=== PATIENT | female | born 1985 | race Two or more races ===

== ENCOUNTER 2020-05-09 06:12 | Inpatient (IN) ==
[2020-05-09] MEDS ORDERED: OXYTOCIN 30 UNITS/500 ML BAG IV PRN ×2 (08:16→17:25)
[2020-05-09 08:37] LABS: Hematocrit (blood only) 36.3 % (37-47); Hemoglobin 12.4 g/dL (12.0-16.0); Mean Corpuscular Volume 93.8 fL (80-100); Mean Platelet Volume 11.4 fL (7.4-10.4); Platelet Count 145 K/uL (130-400); RDW Standard Deviation 44.5 fL (36.4-46.3); Red Blood Count 3.87 M/uL (4.2-5.4); White Blood Count 7.85 K/uL (4.8-10.8)
[2020-05-09 08:44] LABS: Mean Corpuscular Hgb Conc 34.2 g/dL (32-36)
--- NOTE | 2020-05-09 08:48 | Obstetrical Progress Note ---
Date of Service May 09, 2020 Assessment & Plan Admission and Anticipated Discharge Date Admission Date: May 09, 2020 Physical Exam Physical Exam: Admit Note 34 F P1001 at 41 weeks admitted for IOL for post-dates . GBS is negative. FHT Cat 1. Patient was originally seen in [place], [place] for care and transferred to us late in the , Cervix 3/50/- 3/vertex/intact/anterior. EFW 7.5 lbs. Will start with Cytotec for induction of labor and cervical ripening. Results & Data ([facility]) Vital Signs (Past 12 Hours) Vital Signs Temp Pulse Resp BP 05/09/20 08:22 72 131/86 05/09/20 06:35 18 05/09/20 06:23 36.8 C 18 05/09/20 06:22 74 131/87
[2020-05-09] MEDS: miSOPROStoL 25 MCG TAB PV SCH ×2 (09:33→14:56)
--- NOTE | 2020-05-09 09:37 | Obstetrical Progress Note ---
Date of Service May 09, 2020 Assessment & Plan Admission and Anticipated Discharge Date Admission Date: May 09, 2020 Physical Exam Physical Exam: Cytotec 25 mcg placed vaginally. Constitutional: WD/WN, vitals as above Results & Data ([facility]) Vital Signs (Past 12 Hours) Vital Signs Temp Pulse Resp BP 05/09/20 08:22 36.7 C 72 20 131/86 05/09/20 06:35 18 05/09/20 06:23 36.8 C 18 05/09/20 06:22 74 131/87
[2020-05-09] MEDS: LACTATED RINGER'S 1,000 ML IV PRN ×2 (12:41→14:56)
[2020-05-09] MEDS ORDERED: BUPIVACAINE 0.25% 30 ML VIAL ONE (12:47)
[2020-05-09] MEDS ORDERED: ePHEDrine sulfate 50 MG/ML AMP ONE (12:47)
[2020-05-09] MEDS ORDERED: fentaNYL citrate 100 MCG/2 ML VIAL ONE (12:47)
[2020-05-09] MEDS ORDERED: fentaNYL 2MCG/ML ROPIV 1.25MG/ML 100 ML BAG EPI ONE (12:48)
[2020-05-09] MEDS ORDERED: ONDANSETRON INJ 2 MG/ML 2 ML VIAL IV PRN (13:11)
[2020-05-09] MEDS ORDERED: DiphenhydrAMINE HCL 50 MG/ML VIAL IV PRN (13:11)
[2020-05-09] MEDS ORDERED: NALOXONE HCL 0.4 MG/1 ML VIAL/CARP IV PRN (13:11)
[2020-05-09] MEDS ORDERED: fentaNYL 2MCG/ML ROPIV 1.25MG/ML 100 ML BAG EPI PRN (13:11)
[2020-05-09] MEDS ORDERED: NALOXONE HCL 1 MG in SODIUM CHLORIDE 0.9% 1000ML 1,000 ML IV PRN (13:11)
[2020-05-09] MEDS ORDERED: ePHEDrine sulfate 50 MG/ML AMP IV PRN (13:11)
--- NOTE | 2020-05-09 13:16 | Anesthesiology Consultation ---
Date of Service May 09, 2020 Assessment & Plan Chart Review Chart Review: Acceptable Risk for Surgery and Patient NOT seen in Pre Admission Testing Consults Requested none ASA ASA2 Proposed Anesthesia Anesthesia Type: MAC Spinal Risk / Benefits Reviewed With: PT / POA / Parent / Guardian, Accepts Plan and Informed Consent Obtained History Height/Weight Height: 5 ft 4 in Weight: 75.296 kg Allergies Allergy/AdvReac Type Severity Reaction Status Date / Time No Known Allergies Allergy Verified 05/09/20 10:11 Medications Home Medications Medication Instructions Recorded Confirmed Last Taken vit no.[id number] 1 tab PO DAILY 05/09/20 05/09/20 05/08/20 [ Vitamin] Active Medications Generic Name Dose Route Start Last Admin Trade Name Freq PRN Reason Stop Dose Admin Lactated Ringer's 1,000 mls @ 125 mls/hr 05/09/20 08:16 05/09/20 12:41 Lr IV 05/11/20 08:15 999 mls/hr .Q8H PRN Administration L&D Protocol Protocol Misoprostol 25 mcg 05/09/20 09:30 05/09/20 09:33 Cytotec PV 06/08/20 09:29 25 mcg Q4H ROCIO Administration NPO Date Last Intake of Fluids: 05/09/20 Time Last Intake of Fluids: 12:00 Date Last Intake of Solids: 05/09/20 Time Last Intake of Solids: 10:00 Past Medical History Medical History Missed Varicella vaccine Exercise / Class Metabolic Activity II 4-5 Yardwork/Stairs/Walk up hill Past Surgical History Surgical History No pertinent past surgical history Past Anesthesia History No Hx of Anesthesia Complications and No Family Hx of Anesthesia Complications History of PONV No Hx of PONV and No Hx of Motion Sickness Social History Smoking Status: Never smoker Hx Alcohol Use: No Hx Substance Use: No Review of Systems no chest pain or sob Physical Exam Vital Signs Last Vital Signs Temp 36.7 C 05/09/20 08:22 Pulse 75 05/09/20 13:15 Resp 20 05/09/20 08:22 BP 131/86 05/09/20 08:22 Pulse Ox 100 05/09/20 13:15 SpO2 100 ENMT Mouth: no TMJ abnormality Thyromental Distance: > or= 3.5 Finger Breadths Mallampati Class: II Neck normal visual inspection Respiratory normal respiratory effort Auscultation: lungs clear to auscultation bilaterally Cardiovascular Rate/Rhythm: regular rate and regular rhythm Musculoskeletal Spine: normal cervical ROM Neurologic moves all extremities Psychiatric Orientation: alert and oriented x 3 Testing Laboratory Results 05/09/20 08:30
--- NOTE | 2020-05-09 14:56 | Obstetrical Progress Note ---
Date of Service May 09, 2020 Assessment & Plan Admission and Anticipated Discharge Date Admission Date: May 09, 2020 Physical Exam Genitourinary: OB Exam Abdomen: + vertex and + regular contractions Manual OB Exam: + cervical dilation 9 cm, + cervical effacement 100%, + station -1 and + amniotic fluid clear OB Exam Monitor Tracing: + external FHT monitor used, + external uterine monitor used, + category I and + normal FHT variability SROM clear fluid Results & Data ([facility]) Vital Signs (Past 12 Hours) Vital Signs Temp Pulse Resp BP Pulse Ox 05/09/20 14:50 78 99 05/09/20 14:45 68 98 05/09/20 14:41 65 116/67 05/09/20 14:40 65 99 05/09/20 14:35 69 97 05/09/20 14:30 70 96 05/09/20 14:26 63 111/64 05/09/20 14:25 64 96 05/09/20 14:20 73 97 05/09/20 14:15 65 99 05/09/20 14:11 66 113/73 05/09/20 14:10 72 97 05/09/20 14:05 67 95 05/09/20 14:00 66 97 05/09/20 13:57 71 94 05/09/20 13:55 70 117/74 98 05/09/20 13:50 72 117/69 96 05/09/20 13:45 67 99 05/09/20 13:43 70 121/75 05/09/20 13:41 67 125/77 05/09/20 13:40 69 99 05/09/20 13:39 71 124/78 05/09/20 13:37 69 124/76 05/09/20 13:35 82 132/81 100 05/09/20 13:33 73 126/80 05/09/20 13:31 70 124/83 05/09/20 13:30 74 100 05/09/20 13:29 71 130/80 05/09/20 13:27 67 133/85 05/09/20 13:25 80 100 05/09/20 13:20 75 100 05/09/20 13:15 75 100 05/09/20 08:22 36.7 C 72 20 131/86 05/09/20 06:35 18 05/09/20 06:23 36.8 C 18 07/02/20 06:22 74 131/87
--- NOTE | 2020-05-09 17:11 | Delivery Summary ---
Vaginal Delivery Summary Date of Service May 09, 2020 Vaginal Delivery Summary Delivery Note live female over intact perineum with delayed cord clamping Apgars 8/9 weight pending. Cord blood obtained followed by spontaneous delivery of intact placenta. No tears. EBL 300 ml. Final sponge and instrument count are correct. Mom and baby stable.
[2020-05-09] MEDS ORDERED: BENZOCAINE 20% AER SPR 82.5 GM CAN EXT PRN (17:25)
[2020-05-09] MEDS ORDERED: bisacodyL 10 MG SUPP PR PRN (17:25)
[2020-05-09] MEDS ORDERED: DIPHTHERIA/TETANUS/PERTUSSIS 0.5 ML SYR/VIAL IM ONE (17:25)
[2020-05-09] MEDS ORDERED: SUPERCREAM 0.870% 15 GM JAR EXT PRN (17:25)
[2020-05-09] MEDS ORDERED: HYDROCORTISONE ACETATE 25 MG SUPP PR PRN (17:25)
[2020-05-09] MEDS ORDERED: ACETAMINOPHEN 325 MG TAB PO PRN (17:25)
--- NOTE | 2020-05-09 18:45 | Anesthesia Procedure Note ---
Date of Service May 09, 2020 Anesthesia Post Epidural Note Vital Signs Vital Signs: Temp Pulse Resp BP Pulse Ox 36.7 C 68 20 133/82 93 05/09/20 08:22 05/09/20 18:31 05/09/20 08:22 05/09/20 18:31 05/09/20 16:53 Notes Mental Status: alert / awake / arousable and participated in evaluation Nausea / Vomiting: adequately controlled Pain: adequately controlled Airway Patency, RR, SpO2: stable & adequate BP & HR: stable & adequate Hydration State: stable & adequate Neuraxial Anesthesia: was administered and sensory block is resolving Anesthetic Complications: no major complications apparent and Pt Satisfied with anesthetic care Epidural: Removed without complications and With tip intact
[2020-05-09] MEDS: DOCUSATE SODIUM 100 MG CAP PO SCH (20:33)
[2020-05-10] MEDS: IBUPROFEN 600 MG TAB PO PRN ×3 (02:00→14:35)
[2020-05-10 05:55] LABS: Hematocrit (blood only) 34.5 % (37-47); Hemoglobin 11.1 g/dL (12.0-16.0); Mean Corpuscular Hgb Conc 32.2 g/dL (32-36); Mean Corpuscular Volume 96.4 fL (80-100); Mean Platelet Volume 11.9 fL (7.4-10.4); Platelet Count 137 K/uL (130-400); RDW Standard Deviation 45.2 fL (36.4-46.3); Red Blood Count 3.58 M/uL (4.2-5.4); White Blood Count 9.62 K/uL (4.8-10.8)
[2020-05-10] MEDS ORDERED: PRENATAL VITAMIN 1 TAB PO SCH ×2 (08:00→09:00)
[2020-05-10] MEDS: DOCUSATE SODIUM 100 MG CAP PO SCH (08:13)
--- NOTE | 2020-05-10 08:16 | Obstetrical Progress Note ---
Date of Service May 10, 2020 Assessment & Plan Admission and Anticipated Discharge Date Admission Date: May 09, 2020 Subjective Patient is seen and examined. She feels well, no complaints. Wants to be discharged today. Ambulating without dizziness Voiding without difficulty Tolerating regular diet with out N&V Bleeding is minimal No fever/ chills/ CP/ SOB/ N&V/ Leg pain Breast feeding without problems Lab Results 05/09/20 05/10/20 Range/Units 08:30 05:34 WBC 7.85 9.62 (4.8-10.8) K/uL RBC 3.87 L 3.58 L (4.2-5.4) M/uL Hgb 12.4 11.1 L (12.0-16.0) g/dL Hct 36.3 L 34.5 L (37-47) % MCV 93.8 96.4 (80-100) fL MCH 32.0 31.0 (25-34) pg MCHC 34.2 32.2 (32-36) g/dL RDW Std Deviation 44.5 45.2 (36.4-46.3) fL RDW Coeff of Radha 13.0 13.0 (11.5-14.5) % Plt Count 145 137 (130-400) K/uL MPV 11.4 H 11.9 H (7.4-10.4) fL Vital Signs Temp Pulse Resp BP Pulse Ox 05/10/20 04:30 36.5 C 66 14 126/84 98 05/09/20 23:30 36.7 C 77 16 138/85 98 PE: General: Alert, orientedx3, NAD Abd: soft, NT, fundus firm, below Umbilicus Perineum intact, Lochia rubra minimal Ext; NT, no edema AP: 34 yo s/p , ppd# 1 VSS Afebrile doing well Continue routine care All questions were answered D/C home after 24 hours Discussed when to call Results & Data ([facility]) Vital Signs (Past 12 Hours) Vital Signs Temp Pulse Resp BP Pulse Ox 05/10/20 04:30 36.5 C 66 14 126/84 98 05/09/20 23:30 36.7 C 77 16 138/85 98
[2020-05-10] MEDS ORDERED: bisacodyL 5 MG TABEC PO SCH (20:00)
== END 2020-05-10 18:20 | disposition home or self-care (01) | DRG 807 ==
LOC: 4S1 06:12 → 4S2 21:05

== ENCOUNTER 2020-05-12 12:55 | Inpatient (IN) ==
--- NOTE | 2020-05-12 13:30 | Emergency Department Note ---
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 Patient reports she has been having chills. She reports abdominal pain as well as back pain. She reports a T-max of 102 at home. She reports no cough or loss of sme ll. No dysuria. She reports minimal breast pain, feeling her breasts are engorged but her milk is recently come in. She states her pain is made worse by walking. Home Medications Home Medications Medication Instructions Recorded Confirmed Type Vitamin 1 tab PO DAILY 05/09/20 05/12/20 History acetaminophen [Tylenol Extra 1,000 mg PO Q6H PRN 05/12/20 05/12/20 History Strength] ibuprofen 200 mg PO Q6H PRN 05/12/20 05/12/20 History Allergies Allergy/AdvReac Type Severity Reaction Status Date / Time No Known Allergies Allergy Verified 05/12/20 14:23 Past Med/Surg History Medical History Missed Varicella vaccine Surgical History No pertinent past surgical history Social History Preferred Language: Wolof Communication Ability: Effective Didactic Program In Dietetics Director Required: No Beliefs That Will Affect Care: None marital status: marital status details: Joshua Madrigal (39) [phone] Current Living Situation: Spouse and Family Current Living Situation Comment: and daughter current occupational status: employed 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, [employer] Feels Safe at Home: Yes Smoking Status: Former smoker Second Hand Exposure: No ; Hx Alcohol Use: No Hx Substance Use: No Review of Systems A total of 10 systems reviewed and were otherwise negative Physical Exam Vital Signs Vital Signs - 24 hr 05/12/20 13:03 05/12/20 13:57 05/12/20 14:00 Temperature 38.0 C H Temperature Source Oral Pulse Rate 126 H 86 89 Pulse Rate [Apical] Pulse Rate from SpO2 Sensor Respiratory Rate 20 18 20 Respiratory Effort / Characteristics Non-Labored Respiratory Depth Normal Blood Pressure 129/87 120/76 118/73 Blood Pressure [Left Arm] Blood Pressure Mean 101 82 80 Blood Pressure Mean [Left Arm] Pulse Oximetry 98 98 97 Oxygen Delivery Method Room Air Room Air Room Air Sepsis Recent Fever Within 48 Hours No Sepsis Action Taken by Nursing No Action Required 05/12/20 14:01 05/12/20 14:09 05/12/20 14:10 Temperature Temperature Source Pulse Rate 90 85 Pulse Rate [Apical] Pulse Rate from SpO2 Sensor Respiratory Rate 18 19 Respiratory Effort / Characteristics Respiratory Depth Blood Pressure Blood Pressure [Left Arm] Blood Pressure Mean Blood Pressure Mean [Left Arm] Pulse Oximetry 96 Oxygen Delivery Method Room Air Sepsis Recent Fever Within 48 Hours Sepsis Action Taken by Nursing 05/12/20 14:15 05/12/20 14:20 05/12/20 14:30 Temperature Temperature Source Pulse Rate 85 91 H Pulse Rate [Apical] Pulse Rate from SpO2 Sensor 80 Respiratory Rate 21 18 20 Respiratory Effort / Characteristics Respiratory Depth Blood Pressure 117/75 118/72 Blood Pressure [Left Arm] Blood Pressure Mean 83 80 Blood Pressure Mean [Left Arm] Pulse Oximetry 98 98 Oxygen Delivery Method Room Air Room Air Sepsis Recent Fever Within 48 Hours Sepsis Action Taken by Nursing 05/12/20 14:31 05/12/20 14:40 05/12/20 14:45 Temperature Temperature Source Pulse Rate Pulse Rate [Apical] Pulse Rate from SpO2 Sensor 79 79 89 Respiratory Rate Respiratory Effort / Characteristics Respiratory Depth Blood Pressure 123/77 Blood Pressure [Left Arm] Blood Pressure Mean 82 Blood Pressure Mean [Left Arm] Pulse Oximetry 98 98 99 Oxygen Delivery Method Room Air Sepsis Recent Fever Within 48 Hours Sepsis Action Taken by Nursing 05/12/20 15:14 Temperature 37 C Temperature Source Oral Pulse Rate Pulse Rate [Apical] 79 Pulse Rate from SpO2 Sensor Respiratory Rate 18 Respiratory Effort / Characteristics Non-Labored Respiratory Depth Normal Blood Pressure Blood Pressure [Left Arm] 120/75 Blood Pressure Mean Blood Pressure Mean [Left Arm] 90 Pulse Oximetry 97 Oxygen Delivery Method Room Air Sepsis Recent Fever Within 48 Hours Sepsis Action Taken by Nursing Physical Exam GENERAL: She is oriented to person, place, and time. She appears well-developed and well-nourished. She does not appear distressed. HENT: Exam performed. -Head: Normocephalic and atraumatic. -Right Ear: External ear normal. No mastoid tenderness. -Left Ear: External ear normal. No mastoid tenderness. -Mouth/Throat: The oropharynx is clear and moist. No trismus in the jaw. No dental abscesses or uvula swelling. No oropharyngeal exudate or tonsillar abscesses. EYES: Conjunctivae and EOM are normal. Pupils are equal, round, and reactive to light. Right eye exhibits no discharge. Left eye exhibits no discharge. No scl eral icterus. NECK: Normal range of motion. Neck supple. No JVD present. No spinous process tenderness present. No carotid bruit present. No rigidity. No tracheal deviation and normal range of motion present. No Brudzinski's sign and no Kernig's sign noted. CV: Normal rate, regular rhythm, normal heart sounds and intact distal pulses. There is no peripheral edema. Palpable radial pulses bue. PULM/CHEST: Effort normal and breath sounds normal. No respiratory distress. No stridor. She has no wheezes. She has no rales. -Chest Wall: Conducted with nursing csr at bedside. She exhibits no tenderness. No breast erythema, no evidence of mastitis. ABD: The abdomen is soft. Gravid. Abdomen is tender to palpation in the suprapubic area. MUSC/SKEL: Normal range of motion. There is no peripheral edema, tenderness or deformity. LYMPH: No cervical adenopathy. NEURO: She is alert and oriented to person, place, and time. She has normal strength. No cranial nerve deficit or sensory deficit. Coordination and gait normal. GCS eye subscore is 4. GCS verbal subscore is 5. GCS motor subscore is 6. Cerebellar tests wnl. SKIN: Skin is warm and dry. She is not diaphoretic. PSYCH: She has a normal mood and affect. Behavior is normal. Judgment and thought content normal. Course Course 1315: The patient was evaluated in room C10. A complete history and physical exam was performed. Sepsis orders were initiated. Cardiac monitoring: An order was placed for continuous cardiac monitoring. The monitor shows a rate of 120 with sinus rhythm 1325: Discussed with Dr. Brenda Fernandez PROFILE GRINDER TECHNICIAN and I discussed the patient's physical exam and vitals as well as history with him. He states the patient could be suffering from endometritis. I asked him if ultrasound or CT would be better for imaging and he stated the CT would be best. He stated to call him with results of the imaging and then he would guide further management. 1545: Vital signs improved status post IV fluids and Tylenol. Patient's labs show leukocytosis of 13.6. Potassium 3.3. Lactic acid within normal limits. CT shows possible retained products of conception, recommending pelvic ultrasound. I did discuss the CT findings, repeat vital signs, and white blood cell count with Dr. Gutierrez who states to obtain a pelvic ultrasound and he will admit the patient. Dr. Gutierrez states once the patient is on the L&D floor he will evaluate her and start antibiotics. Administered Medications Ioversol (Optiray 320 100ml) 91 ml IV ONCE PRN PRN Reason: Interaction Checking Stop: 05/16/20 15:05 Last Admin: 05/12/20 15:06 Dose: 91 ml Documented by: [id number] Discontinued Medications Acetaminophen (Ofirmev) 1,000 mg in 100 mls @ 400 mls/hr IV NOW STA Stop: 05/12/20 13:54 Last Infusion: 05/12/20 14:37 Dose: 0 mls/hr Documented by: [id number] Admin: 05/12/20 14:20 Dose: 400 mls/hr Documented by: [id number] Sodium Chloride (Nss 1000ml) 1,000 mls @ 999 mls/hr IV .Q1H1M ONE Stop: 05/12/20 14:40 Last Infusion: 05/12/20 15:20 Dose: 0 mls/hr Documented by: [id number] Admin: 05/12/20 14:20 Dose: 999 mls/hr Documented by: [id number] Medical Decision Making Laboratory Data Result diagrams: 05/12/20 13:59 05/12/20 13:59 Lab Results 05/12/20 05/12/20 05/12/20 Range/Units 13:21 13:59 13:59 WBC 13.64 H (4.8-10.8) K/uL RBC 3.51 L (4.2-5.4) M/uL Hgb 11.4 L (12.0-16.0) g/dL Hct 33.3 L (37-47) % MCV 94.9 (80-100) fL MCH 32.5 (25-34) pg MCHC 34.2 (32-36) g/dL RDW Std Deviation 43.8 (36.4-46.3) fL RDW Coeff of Radha 12.9 (11.5-14.5) % Plt Count 129 L (130-400) K/uL MPV 11.2 H (7.4-10.4) fL Immature Gran % (Auto) 0.5 % Neut % (Auto) 91.8 % Lymph % (Auto) 2.9 % Parke % (Auto) 4.5 % Eos % (Auto) 0.2 % Baso % (Auto) 0.1 % Neut # (Auto) 12.52 H (1.4-6.5) K/uL Lymph # (Auto) 0.39 L (1.2-3.4) K/uL Parke # (Auto) 0.62 H (0.11-0.59) K/uL Eos # (Auto) 0.03 (0-0.5) K/uL Baso # (Auto) 0.01 (0-0.2) K/uL Immature Gran # (Auto) 0.07 H (0.00-0.02) K/uL PT 10.3 (9.0-12.0) Seconds INR 1.0 (0.9-1.1) APTT 27.7 (21.0-31.0) Seconds PTT Ratio 1.0 Sodium (136-145) mmol/L Potassium (3.5-5.1) mmol/L Chloride (98-107) mmol/L Carbon Dioxide (21-32) mmol/L Anion Gap (3-11) BUN (7-18) mg/dl Creatinine (0.6-1.2) mg/dl Est Cr Clr Drug Dosing ml/min Est GFR ( Amer) Est GFR (Non-Af Amer) BUN/Creatinine Ratio (10-20) Glucose (70-99) mg/dl Lactate (0.4-2.0) mmol/L Calcium (8.5-10.1) mg/dl Magnesium (1.8-2.4) mg/dl Total Bilirubin (0.2-1) mg/dl AST (15-37) U/L ALT (12-78) U/L Alkaline Phosphatase (45-117) U/L Total Protein (6.4-8.2) gm/dl Albumin (3.4-5.0) gm/dl Globulin (2.5-4.0) gm/dl Albumin/Globulin Ratio (0.9-2) Procalcitonin (0-0.5) ng/ml Urine Color [place] Urine Appearance Cloudy A (Clear) Urine pH >= 9.0 H (4.5-7.5) Ur Specific [place] 1.018 (1.000-1.030) Urine Protein 1+ H (Negative) Urine Glucose (UA) Negative (Negative) Urine Ketones Negative (Negative) Urine Blood 3+ H (Negative) Urine Nitrite Negative (Negative) Urine Bilirubin Negative (Negative) Urine Urobilinogen Negative (Negative) Ur Leukocyte Esterase 2+ H (Negative) Urine WBC (Auto) >30 H (0-5) /hpf Urine RBC (Auto) 10-30 H (0-4) /hpf U Hyaline Cast (Auto) 1-5 (0-5) /lpf U Epithel Cells (Auto) 20-30 H (0-5) /lpf Urine Bacteria (Auto) 1+ H (Negative) Urine Mucus Present A (None Prsent) Urine Yeast Not Reportable 05/12/20 05/12/20 05/12/20 Range/Units 13:59 13:59 13:59 WBC (4.8-10.8) K/uL RBC (4.2-5.4) M/uL Hgb (12.0-16.0) g/dL Hct (37-47) % MCV (80-100) fL MCH (25-34) pg MCHC (32-36) g/dL RDW Std Deviation (36.4-46.3) fL RDW Coeff of Radha (11.5-14.5) % Plt Count (130-400) K/uL MPV (7.4-10.4) fL Immature Gran % (Auto) % Neut % (Auto) % Lymph % (Auto) % Parke % (Auto) % Eos % (Auto) % Baso % (Auto) % Neut # (Auto) (1.4-6.5) K/uL Lymph # (Auto) (1.2-3.4) K/uL Parke # (Auto) (0.11-0.59) K/uL Eos # (Auto) (0-0.5) K/uL Baso # (Auto) (0-0.2) K/uL Immature Gran # (Auto) (0.00-0.02) K/uL PT (9.0-12.0) Seconds INR (0.9-1.1) APTT (21.0-31.0) Seconds PTT Ratio Sodium 136 (136-145) mmol/L Potassium 3.3 L (3.5-5.1) mmol/L Chloride 104 (98-107) mmol/L Carbon Dioxide 21 (21-32) mmol/L Anion Gap 11.0 (3-11) BUN 6 L (7-18) mg/dl Creatinine 0.49 L (0.6-1.2) mg/dl Est Cr Clr Drug Dosing 152.8 ml/min Est GFR ( Amer) 145.3 Est GFR (Non-Af Amer) 125.3 BUN/Creatinine Ratio 11.3 (10-20) Glucose 89 (70-99) mg/dl Lactate 0.6 (0.4-2.0) mmol/L Calcium 8.1 L (8.5-10.1) mg/dl Magnesium 1.8 (1.8-2.4) mg/dl Total Bilirubin 0.7 (0.2-1) mg/dl AST 37 (15-37) U/L ALT 36 (12-78) U/L Alkaline Phosphatase 73 (45-117) U/L Total Protein 5.9 L (6.4-8.2) gm/dl Albumin 2.4 L (3.4-5.0) gm/dl Globulin 3.5 (2.5-4.0) gm/dl Albumin/Globulin Ratio 0.7 L (0.9-2) Procalcitonin 0.14 (0-0.5) ng/ml Urine Color Urine Appearance (Clear) Urine pH (4.5-7.5) Ur Specific [place] (1.000-1.030) Urine Protein (Negative) Urine Glucose (UA) (Negative) Urine Ketones (Negative) Urine Blood (Negative) Urine Nitrite (Negative) Urine Bilirubin (Negative) Urine Urobilinogen (Negative) Ur Leukocyte Esterase (Negative) Urine WBC (Auto) (0-5) /hpf Urine RBC (Auto) (0-4) /hpf U Hyaline Cast (Auto) (0-5) /lpf U Epithel Cells (Auto) (0-5) /lpf Urine Bacteria (Auto) (Negative) Urine Mucus (None Prsent) Urine Yeast Imaging Data Radiologist's Impression: ABDOMEN AND PELVIS CT WITH IV CONTRAST CT DOSE: 350.33 mGy.cm HISTORY: Acute generalized abdominal pain and fever with history of recent vaginal delivery. abdominal pain fever 3 days s/p vag delivery TECHNIQUE: Multiaxial CT images of the abdomen and pelvis were performed following the IV administration of 91 cc of Optiray 320, A dose lowering technique was utilized adhering to the principles of ALARA. COMPARISON STUDY: Chest radiograph of same day FINDINGS: Clear lung bases. There is no pneumatosis or pneumoperitoneum. Imaged inferior cardiac chambers are unremarkable. Spleen measures up to 15.3 cm in AP dimension. Pancreas, adrenal glands and gallbladder are unremarkable. There are least 6 hepatic lesions noted largest of which measures 6.0 cm and the inferior right hepatic lobe. All of these lesions appear to demonstrate varying degrees of peripheral discontiguous nodular enhancement. Patency of the hepatic and portal veins. Mild bilateral pelvocaliectasis, likely physiologic secondary to recent gravid state. Moderate urinary bladder distention. Enlarged post gravid appearance of the uterus with endometrial thickening and heterogeneity. There is probable fluid/debris within the lower uterine segment and endocervical canal. Trace free pelvic fluid. No adnexal mass lesion. Aorta and IVC are unremarkable. No bowel obstruction or bowel wall thickening. Moderate fecal retention. Unremarkable appendix. Tiny fat filled periumbilical hernia. Imaged breast parenchyma and soft tissues appear unremarkable. Bones appear intact. IMPRESSION: 1. Enlarged post-gravid appearance of the uterus with endometrial heterogeneity. Possible debris/fluid within the endocervical canal and lower uterine segment. These findings could be correlated with a pelvic ultrasound to exclude retained products of conception. 2. No bowel obstruction or bowel wall thickening. Normal appendix. 3. Moderate fecal retention. 4. There are at least six hepatic lesions measuring up to 6.0 cm in the inferior right hepatic lobe. These lesions demonstrate imaging characteristics suggestive of probable hemangiomata. Confirmation could be made with a follow-up nonemergent CT or MRI liver protocol exam. ACT 112: Negative or not required by law. The above report was generated using voice recognition software. It may contain grammatical, syntax or spelling errors. Electronically signed by: Adelso Santana M.D. 05/12/2020 3:32 PM Dictated: 05/12/20 1524 Transcribed: 05/12/20 1524 XR chest 1V portable HISTORY: 34 years-old Female SEPSIS acute sepsis COMPARISON: None TECHNIQUE: Portable AP view of the chest FINDINGS: Cardiomediastinal and hilar silhouettes are within normal limits. No pneumothorax, pleural effusion, airspace consolidation or overt pulmonary edema. Bones of the chest appear grossly intact. IMPRESSION: No acute process. ACT 112: Negative or not required by law. The above report was generated using voice recognition software. It may contain grammatical, syntax or spelling errors. Electronically signed by: Adelso Santana M.D. 05/12/2020 2:15 PM Dictated: 05/12/20 1414 Transcribed: 05/12/20 1414 [facility] Narrative 1315: The patient was evaluated in room C10. A complete history and physical exam was performed. Sepsis orders were initiated. Cardiac monitoring: An order was placed for continuous cardiac monitoring. The monitor shows a rate of 120 with sinus rhythm 1325: Discussed with Dr. Brenda Fernandez PROFILE GRINDER TECHNICIAN and I discussed the patient's physical exam and vitals as well as history with him. He states the patient could be suffering from endometritis. I asked him if ultrasound or CT would be better for imaging and he stated the CT would be best. He stated to call him with results of the imaging and then he would guide further management. 1545: Vital signs improved status post IV fluids and Tylenol. Patient's labs show leukocytosis of 13.6. Potassium 3.3. Lactic acid within normal limits. CT shows possible retained products of conception, recommending pelvic ultrasound. I did discuss the CT findings, repeat vital signs, and white blood cell count with Dr. Gutierrez who states to obtain a pelvic ultrasound and he will admit the patient. Dr. Gutierrez states once the patient is on the L&D floor he will evaluate her and start antibiotics. Impression & Plan Acute endometritis, Fever, Abdominal pain Discharge Plan Visit Data Chief Complaint: Illness Stated Complaint: ABDOMINAL PAIN,FEVER CHILLS,GAVE 3 DAYS AGO ED Provider: Sj Storm Discharge Problem: Acute endometritis, Fever, Abdominal pain Patient Disposition: Admitted As Inpatient Forms Stand Alone Forms: [facility] Prescriptions Prescriptions: No Action Vitamin 27 mg iron- 800 mcg Tablet 1 tab PO DAILY RF: 0 acetaminophen [Tylenol Extra Strength] 500 mg Tablet 1,000 mg PO Q6H PRN (Reason: fever/pain) RF: 0 ibuprofen 200 mg Tablet 200 mg PO Q6H PRN (Reason: fever/pain) RF: 0 Referrals Referrals: PCP,NO [Primary Care Provider] - Discharge Problem: Fever Qualifiers: Fever type: unspecified Qualified Code(s): R50.9 - Fever, unspecified Abdominal pain Qualifiers: Abdominal location: unspecified location Qualified Code(s): R10.9 - Unspecified abdominal pain
[2020-05-12 13:36] LABS: Appearance Urine Cloudy (Clear); Bilirubin Urine Negative (Negative); Blood Urine 3+ (Negative); Color Urine Orange; Epithelial Cell Urine Auto 20-30 /lpf (0-5); Glucose Urine UA Negative (Negative); Ketones Urine Negative (Negative); Leukocyte Esterase Urine 2+ (Negative); Nitrite Urine Negative (Negative); Specific Gravity Urine 1.018 (1.000-1.030); Urobilinogen Urine Negative (Negative); WBC Urine Automated >30 /hpf (0-5); pH Urine >= 9.0 (4.5-7.5)
[2020-05-12] MEDS ORDERED: SODIUM CHLORIDE 0.9% 1000ML 1,000 ML IV ONE (13:40)
[2020-05-12] MEDS ORDERED: ACETAMINOPHEN 1,000 MG/100 ML VIAL IV STA (13:40)
[2020-05-12 13:54] LABS: Protein Urine 1+ (Negative); Sulfosalicylic Acid Urine Positive (Negative)
[2020-05-12 13:56] LABS: Mucus Urine Present (None Prsent)
[2020-05-12 13:57] LABS: Bacteria Urine Automated 1+ (Negative)
[2020-05-12 14:10] LABS: Basophils # (auto) 0.01 K/uL (0-0.2); Basophils % (auto) 0.1 %; Eosinophils # (auto) 0.03 K/uL (0-0.5); Eosinophils % (auto) 0.2 %; Hematocrit (blood only) 33.3 % (37-47); Hemoglobin 11.4 g/dL (12.0-16.0); Immature Granulocytes # (auto) 0.07 K/uL (0.00-0.02); Immature Granulocytes % (auto) 0.5 %; Lymphocytes # (auto) 0.39 K/uL (1.2-3.4); Lymphocytes % (auto) 2.9 %; Mean Corpuscular Hemoglobin 32.5 pg (25-34); Mean Corpuscular Hgb Conc 34.2 g/dL (32-36); Mean Corpuscular Volume 94.9 fL (80-100); Mean Platelet Volume 11.2 fL (7.4-10.4); Monocytes # (auto) 0.62 K/uL (0.11-0.59); Monocytes % (auto) 4.5 %; Neutrophils # (auto) 12.52 K/uL (1.4-6.5); Neutrophils % (auto) 91.8 %; Platelet Count 129 K/uL (130-400); RDW Coefficient of Variation 12.9 % (11.5-14.5); RDW Standard Deviation 43.8 fL (36.4-46.3); Red Blood Count 3.51 M/uL (4.2-5.4); White Blood Count 13.64 K/uL (4.8-10.8)
--- NOTE | 2020-05-12 14:16 | XRay Report ---
XR chest 1V portable HISTORY: 34 years-old Female SEPSIS acute sepsis COMPARISON: None TECHNIQUE: Portable AP view of the chest FINDINGS: Cardiomediastinal and hilar silhouettes are within normal limits. No pneumothorax, pleural effusion, airspace consolidation or overt pulmonary edema. Bones of the chest appear grossly intact. IMPRESSION: No acute process. ACT 112: Negative or not required by law. The above report was generated using voice recognition software. It may contain grammatical, syntax o r spelling errors. Electronically signed by: Adelso Santana M.D. 05/12/2020 2:15 PM
[2020-05-12 14:20] LABS: Partial Thromboplastin Time 27.7 Seconds (21.0-31.0); Prothrombin Time 10.3 Seconds (9.0-12.0)
[2020-05-12 14:31] LABS: Albumin Level 2.4 gm/dl (3.4-5.0); BUN Creatinine Ratio 11.3 (10-20); Calcium 8.1 mg/dl (8.5-10.1); Creatinine Clr Calc Pharmacy 152.8 ml/min; Est GFR (African American) 145.3; Est GFR (Non-African American) 125.3; Magnesium 1.8 mg/dl (1.8-2.4); Potassium 3.3 mmol/L (3.5-5.1)
[2020-05-12 14:34] LABS: Albumin Globulin Ratio 0.7 (0.9-2); Bilirubin,Total 0.7 mg/dl (0.2-1); Globulin 3.5 gm/dl (2.5-4.0); Total Protein 5.9 gm/dl (6.4-8.2)
[2020-05-12] MEDS ORDERED: IOVERSOL 100ml IV PRN (15:06)
--- NOTE | 2020-05-12 15:34 | CT Scan Report ---
ABDOMEN AND PELVIS CT WITH IV CONTRAST CT DOSE: 350.33 mGy.cm HISTORY: Acute generalized abdominal pain and fever with history of recent vaginal delivery. abdomin al pain fever 3 days s/p vag delivery TECHNIQUE: Multiaxial CT images of the abdomen and pelvis were performed following the IV administrat ion of 91 cc of Optiray 320, A dose lowering technique was utilized adhering to the principles of AL [place]. COMPARISON STUDY: Chest radiograph of same day FINDINGS: Clear lung bases. There is no pneumatosis or pneumoperitoneum. Imaged inferior cardiac chambers are u nremarkable. Spleen measures up to 15.3 cm in AP dimension. Pancreas, adrenal glands and gallbladder are unremarkable. There are least 6 hepatic lesions noted largest of which measures 6.0 cm and the in ferior right hepatic lobe. All of these lesions appear to demonstrate varying degrees of peripheral d iscontiguous nodular enhancement. Patency of the hepatic and portal veins. Mild bilateral pelvocaliec tasis, likely physiologic secondary to recent gravid state. Moderate urinary bladder distention. Enla rged post gravid appearance of the uterus with endometrial thickening and heterogeneity. There is pro bable fluid/debris within the lower uterine segment and endocervical canal. Trace free pelvic fluid. No adnexal mass lesion. Aorta and IVC are unremarkable. No bowel obstruction or bowel wall thickening. Moderate fecal retention. Unremarkable appendix. Tiny fat filled periumbilical hernia. Imaged breast parenchyma and soft tissues appear unremarkable. Bones appear intact. IMPRESSION: 1. Enlarged post-gravid appearance of the uterus with endometrial heterogeneity. Possible debris/flui d within the endocervical canal and lower uterine segment. These findings could be correlated with a pelvic ultrasound to exclude retained products of conception. 2. No bowel obstruction or bowel wall thickening. Normal appendix. 3. Moderate fecal retention. 4. There are at least six hepatic lesions measuring up to 6.0 cm in the inferior right hepatic lobe. These lesions demonstrate imaging characteristics suggestive of probable hemangiomata. Confirmation c ould be made with a follow-up nonemergent CT or MRI liver protocol exam. ACT 112: Negative or not required by law. The above report was generated using voice recognition software. It may contain grammatical, syntax o r spelling errors. Electronically signed by: Adelso Santana M.D. 05/12/2020 3:32 PM
--- NOTE | 2020-05-12 16:43 | Ultrasound Report ---
US pelvic complete HISTORY: 34 years-old Female fever abd pain ro retained prodocut conception acute fever with general ized abdominal and pelvic pain status post recent vaginal delivery COMPARISON: CT abdomen and pelvis 05/12/2020 TECHNIQUE: Multiple real-time sonographic images of the pelvic structures were obtained transabdomina lly assessing grayscale appearance, color and spectral flow FINDINGS: Anteflexed enlarged and heterogeneous uterus measures 18.6 x 8.5 x 12.7 cm. No definite myometrial ma ss lesion identified. Endometrium is heterogeneous measuring up to 1.5 cm in thickness. Fluid/debris is noted within the lower uterine segment and cervix. No color flow identified these distributions. Right ovary measures 3.0 x 1.9 x 2.5 cm demonstrates normal arterial inflow and venous outflow. The l eft ovary measures 3.2 x 2.0 x 2.3 cm and also demonstrates normal arterial inflow and venous outflow . No significant free pelvic fluid. IMPRESSION: 1. Enlarged, heterogeneous postgravid appearance of the uterus with heterogeneous endometrium. No def inite evidence of retained products of conception. This finding could be correlated with serial quant itative beta hCG analysis. 2. Small amount of fluid/debris of the lower uterine segment and endocervical canal suggests blood pr oducts. 3. Normal appearance of the bilateral ovaries. ACT 112: Negative or not required by law. The above report was generated using voice recognition software. It may contain grammatical, syntax o r spelling errors. Electronically signed by: Adelso Santana M.D. 05/12/2020 4:42 PM
[2020-05-12] MEDS ORDERED: D5W AND NSS 1,000 ML IV SCH (17:00)
[2020-05-12] MEDS ORDERED: GENTAMICIN CONSULT ACTIVE PRN (19:23)
[2020-05-12] MEDS ORDERED: ACETAMINOPHEN 500 MG TAB PO PRN (19:23)
--- NOTE | 2020-05-12 19:51 | Pharmacy Report ---
Pharmacy Abx Dose Short Note - Date of Service May 12, 2020 - Assessment & Plan Microbiology: * Urine (clean catch)--pending * BC x 2--pending Laboratory Tests 05/12/20 05/12/20 13:59 13:59 WBC 13.64 H Creatinine 0.49 L Est Cr Clr Drug Dosing 152.8 Assessment 34 year old F post 3 days ago with fever/abdominal pain, ordered Clinda/Gent Day # 1 of antimicrobial therapy. Plan Gent: * Ordered [facility] Protocol: Gent 5mg/kg (Adj BW) 300mg IV q24h for est CrCL>60mL/min. * Ordered Random Gent 7/6 AM labs to better assess drug clearance and appropriate dosing interval. * Scr daily x 3 days. Pharmacy will continue to follow and will adjust dose/frequency as necessary. Thank you.
[2020-05-12] MEDS: LACTATED RINGER'S 1,000 ML IV SCH (19:58)
[2020-05-12] MEDS: CLINDAMYCIN 900 MG in DEXTROSE 5% 50 ML IV SCH (20:07)
[2020-05-12] MEDS ORDERED: GENTAMICIN SULFATE 300 MG in DEXTROSE 5% 100 ML IV SCH (20:30)
--- NOTE | 2020-05-12 22:15 | History and Physical Report ---
DATE OF ADMISSION: 05/12/2020 HISTORY OF PRESENT ILLNESS: The patient is a 34-year-old status post vaginal delivery on 05/09/2020. Delivery was unremarkable. The patient was discharged home . Today, she presented to the ER with positive chills and fever. She denies chest pain, no shortness of breath, nausea or vomiting. She also had complaints of lower abdominal pain radiating to the back. In the ER, she was seen and evaluated. Evaluation included labs and CT scan and ultrasound. CT scan and ultrasound was unremarkable from the pelvic and abdominal standpoint. Temperature in the ER was 100.4. Otherwise, the patient is unremarkable. PAST MEDICAL HISTORY: None. PAST SURGICAL HISTORY: None. SOCIAL HISTORY: The patient is and lives with spouse and children. FAMILY HISTORY: Noncontributory. ALLERGIES: No known drug allergies. PHYSICAL EXAMINATION: GENERAL: Well-developed, well-nourished white female in no acute distress. VITAL SIGNS: In the ER showed a temperature of 100.4, blood pressure of 129/87, respirations 18, pulse is 90. HEART: S1, S2, regular rhythm and rate. LUNGS: Clear to auscultation bilaterally. ABDOMEN: Nontender, nondistended, mild tenderness on palpation of the uterus. PELVIC: Unremarkable. There is minimal lochia. EXTREMITIES: No cyanosis, clubbing or edema. ASSESSMENT AND PLAN: Status post endomyometritis after vaginal delivery 3 days ago. The patient is admitted, will start the patient on antibiotics therapy. [facility]
[2020-05-12] MEDS: IBUPROFEN 600 MG TAB PO PRN (23:17)
[2020-05-13] MEDS: CLINDAMYCIN 900 MG in DEXTROSE 5% 50 ML IV SCH ×3 (04:14→18:07)
[2020-05-13] MEDS: LACTATED RINGER'S 1,000 ML IV SCH (05:11)
[2020-05-13 06:58] LABS: Creatinine Clr Calc Pharmacy 162.8 ml/min; Est GFR (African American) 148.3
--- NOTE | 2020-05-13 08:58 | Obstetrical Progress Note ---
Date of Service May 13, 2020 Assessment & Plan Admission and Anticipated Discharge Date Admission Date: May 12, 2020 Subjective Patient is seen and examined. She feels well, no complaints. Admitted yesterday with fever and abdominal pain for endometritis No more fever/ chills No CP/ SOB/ cough/ N&V/diarrhea nor Leg pain No known contact with COVID -19 patient Desires testing Ambulating without dizziness Voiding without difficulty Tolerating regular diet with out N&V Bleeding is minimal Breast feeding without problems Vital Signs Temp Pulse Pulse Pulse Pulse Resp BP 05/13/20 08:00 36.4 C L 62 20 05/13/20 04:10 37.0 C 75 16 05/12/20 23:20 37.2 C 84 17 05/12/20 19:04 37.2 C 80 18 05/12/20 18:02 87 18 05/12/20 17:30 74 18 05/12/20 16:44 73 18 05/12/20 15:14 37 C 79 18 05/12/20 14:45 123/77 05/12/20 14:40 05/12/20 14:31 05/12/20 14:30 20 118/72 05/12/20 14:20 91 H 18 05/12/20 14:15 85 21 117/75 05/12/20 14:10 85 19 05/12/20 14:09 05/12/20 14:01 90 18 05/12/20 14:00 89 20 118/73 05/12/20 13:57 86 18 120/76 05/12/20 13:03 38.0 C H 126 H 20 129/87 BP Pulse Ox 05/13/20 08:00 102/64 05/13/20 04:10 117/74 98 05/12/20 23:20 123/77 98 05/12/20 19:04 130/86 96 05/12/20 18:02 119/80 98 05/12/20 17:30 115/78 98 05/12/20 16:44 113/76 98 05/12/20 15:14 120/75 97 05/12/20 14:45 99 05/12/20 14:40 98 05/12/20 14:31 98 05/12/20 14:30 98 05/12/20 14:20 05/12/20 14:15 98 05/12/20 14:10 05/12/20 14:09 96 05/12/20 14:01 05/12/20 14:00 97 05/12/20 13:57 98 05/12/20 13:03 98 Intake and Output 05/12/20 05/13/20 05/13/20 22:59 06:59 14:59 Intake Total 3290.583 / 4721.583 1331.00 / 4721.583 Output Total 700 / 2175 1475 / 2175 Balance 2590.583 / 2546.583 -144.00 / 2546.583 Intake: IV 1640.583 / 2621.583 881.00 / 2621.583 Cleocin 900 mg In D5w 50 ml @ 56 / 112 56 / 112 112 mls/hr IV Q8H ROCIO Rx#: [id number] D5w and Nss 1,000 ml @ 125 mls/ 393.75 / 393.75 hr IV .Q8H ROCIO Rx#:[id number] Garamycin 300 mg In D5 100 ml @ 107.5 / 107.5 100 mls/hr IV Q24H ROCIO Rx#: [id number] Lr 1,000 ml @ 125 mls/hr IV . 83.333 / 908.333 825.00 / 908.333 Q8H ROCIO Rx#:[id number] Nss 1000ML 1,000 ml @ 999 mls/ 1000 / 1000 hr IV .Q1H1M ONE Rx#:[id number] Oral 1650 / 2100 450 / 2100 Output: Urine 700 / 2175 1475 / 2175 Other: Weight 70.4 kg 05/13/20 05/13/20 05/12/20 Range/Units 05:53 05:53 13:59 WBC (4.8-10.8) K/uL RBC (4.2-5.4) M/uL Hgb (12.0-16.0) g/dL Hct (37-47) % MCV (80-100) fL MCH (25-34) pg MCHC (32-36) g/dL RDW Std Deviation (36.4-46.3) fL RDW Coeff of Radha (11.5-14.5) % Plt Count (130-400) K/uL MPV (7.4-10.4) fL Immature Gran % (Auto) % Neut % (Auto) % Lymph % (Auto) % [place] % (Auto) % Eos % (Auto) % Baso % (Auto) % Neut # (Auto) (1.4-6.5) K/uL Lymph # (Auto) (1.2-3.4) K/uL [place] # (Auto) (0.11-0.59) K/uL Eos # (Auto) (0-0.5) K/uL Baso # (Auto) (0-0.2) K/uL Immature Gran # (Auto) (0.00-0.02) K/uL PT (9.0-12.0) Seconds INR (0.9-1.1) APTT (21.0-31.0) Seconds PTT Ratio Sodium (136-145) mmol/L Potassium (3.5-5.1) mmol/L Chloride (98-107) mmol/L Carbon Dioxide (21-32) mmol/L Anion Gap (3-11) BUN (7-18) mg/dl Creatinine 0.46 L (0.6-1.2) mg/dl Est Cr Clr Drug Dosing 162.8 ml/min Est GFR ( Amer) 148.3 Est GFR (Non-Af Amer) 128.0 BUN/Creatinine Ratio (10-20) Glucose (70-99) mg/dl Lactate (0.4-2.0) mmol/L Calcium (8.5-10.1) mg/dl Magnesium (1.8-2.4) mg/dl Total Bilirubin (0.2-1) mg/dl AST (15-37) U/L ALT (12-78) U/L Alkaline Phosphatase (45-117) U/L Total Protein (6.4-8.2) gm/dl Albumin (3.4-5.0) gm/dl Globulin (2.5-4.0) gm/dl Albumin/Globulin Ratio (0.9-2) Procalcitonin 0.14 (0-0.5) ng/ml Urine Color Urine Appearance (Clear) Urine pH (4.5-7.5) Ur Specific [place] (1.000-1.030) Urine Protein (Negative) Urine Glucose (UA) (Negative) Urine Ketones (Negative) Urine Blood (Negative) Urine Nitrite (Negative) Urine Bilirubin (Negative) Urine Urobilinogen (Negative) Ur Leukocyte Esterase (Negative) Urine WBC (Auto) (0-5) /hpf Urine RBC (Auto) (0-4) /hpf U Hyaline Cast (Auto) (0-5) /lpf U Epithel Cells (Auto) (0-5) /lpf Urine Bacteria (Auto) (Negative) Urine Mucus (None Prsent) Urine Yeast Random Gentamicin 0.40 mcg/ml 05/12/20 05/12/20 05/12/20 Range/Units 13:59 13:59 13:59 WBC (4.8-10.8) K/uL RBC (4.2-5.4) M/uL Hgb (12.0-16.0) g/dL Hct (37-47) % MCV (80-100) fL MCH (25-34) pg MCHC (32-36) g/dL RDW Std Deviation (36.4-46.3) fL RDW Coeff of Radha (11.5-14.5) % Plt Count (130-400) K/uL MPV (7.4-10.4) fL Immature Gran % (Auto) % Neut % (Auto) % Lymph % (Auto) % [place] % (Auto) % Eos % (Auto) % Baso % (Auto) % Neut # (Auto) (1.4-6.5) K/uL Lymph # (Auto) (1.2-3.4) K/uL [place] # (Auto) (0.11-0.59) K/uL Eos # (Auto) (0-0.5) K/uL Baso # (Auto) (0-0.2) K/uL Immature Gran # (Auto) (0.00-0.02) K/uL PT 10.3 (9.0-12.0) Seconds INR 1.0 (0.9-1.1) APTT 27.7 (21.0-31.0) Seconds PTT Ratio 1.0 Sodium 136 (136-145) mmol/L Potassium 3.3 L (3.5-5.1) mmol/L Chloride 104 (98-107) mmol/L Carbon Dioxide 21 (21-32) mmol/L Anion Gap 11.0 (3-11) BUN 6 L (7-18) mg/dl Creatinine 0.49 L (0.6-1.2) mg/dl Est Cr Clr Drug Dosing 152.8 ml/min Est GFR ( Amer) 145.3 Est GFR (Non-Af Amer) 125.3 BUN/Creatinine Ratio 11.3 (10-20) Glucose 89 (70-99) mg/dl Lactate 0.6 (0.4-2.0) mmol/L Calcium 8.1 L (8.5-10.1) mg/dl Magnesium 1.8 (1.8-2.4) mg/dl Total Bilirubin 0.7 (0.2-1) mg/dl AST 37 (15-37) U/L ALT 36 (12-78) U/L Alkaline Phosphatase 73 (45-117) U/L Total Protein 5.9 L (6.4-8.2) gm/dl Albumin 2.4 L (3.4-5.0) gm/dl Globulin 3.5 (2.5-4.0) gm/dl Albumin/Globulin Ratio 0.7 L (0.9-2) Procalcitonin (0-0.5) ng/ml Urine Color Urine Appearance (Clear) Urine pH (4.5-7.5) Ur Specific [place] (1.000-1.030) Urine Protein (Negative) Urine Glucose (UA) (Negative) Urine Ketones (Negative) Urine Blood (Negative) Urine Nitrite (Negative) Urine Bilirubin (Negative) Urine Urobilinogen (Negative) Ur Leukocyte Esterase (Negative) Urine WBC (Auto) (0-5) /hpf Urine RBC (Auto) (0-4) /hpf U Hyaline Cast (Auto) (0-5) /lpf U Epithel Cells (Auto) (0-5) /lpf Urine Bacteria (Auto) (Negative) Urine Mucus (None Prsent) Urine Yeast Random Gentamicin mcg/ml 05/12/20 05/12/20 Range/Units 13:59 13:21 WBC 13.64 H (4.8-10.8) K/uL RBC 3.51 L (4.2-5.4) M/uL Hgb 11.4 L (12.0-16.0) g/dL Hct 33.3 L (37-47) % MCV 94.9 (80-100) fL MCH 32.5 (25-34) pg MCHC 34.2 (32-36) g/dL RDW Std Deviation 43.8 (36.4-46.3) fL RDW Coeff of Radha 12.9 (11.5-14.5) % Plt Count 129 L (130-400) K/uL MPV 11.2 H (7.4-10.4) fL Immature Gran % (Auto) 0.5 % Neut % (Auto) 91.8 % Lymph % (Auto) 2.9 % [place] % (Auto) 4.5 % Eos % (Auto) 0.2 % Baso % (Auto) 0.1 % Neut # (Auto) 12.52 H (1.4-6.5) K/uL Lymph # (Auto) 0.39 L (1.2-3.4) K/uL [place] # (Auto) 0.62 H (0.11-0.59) K/uL Eos # (Auto) 0.03 (0-0.5) K/uL Baso # (Auto) 0.01 (0-0.2) K/uL Immature Gran # (Auto) 0.07 H (0.00-0.02) K/uL PT (9.0-12.0) Seconds INR (0.9-1.1) APTT (21.0-31.0) Seconds PTT Ratio Sodium (136-145) mmol/L Potassium (3.5-5.1) mmol/L Chloride (98-107) mmol/L Carbon Dioxide (21-32) mmol/L Anion Gap (3-11) BUN (7-18) mg/dl Creatinine (0.6-1.2) mg/dl Est Cr Clr Drug Dosing ml/min Est GFR ( Amer) Est GFR (Non-Af Amer) BUN/Creatinine Ratio (10-20) Glucose (70-99) mg/dl Lactate (0.4-2.0) mmol/L Calcium (8.5-10.1) mg/dl Magnesium (1.8-2.4) mg/dl Total Bilirubin (0.2-1) mg/dl AST (15-37) U/L ALT (12-78) U/L Alkaline Phosphatase (45-117) U/L Total Protein (6.4-8.2) gm/dl Albumin (3.4-5.0) gm/dl Globulin (2.5-4.0) gm/dl Albumin/Globulin Ratio (0.9-2) Procalcitonin (0-0.5) ng/ml Urine Color [place] Urine Appearance Cloudy A (Clear) Urine pH >= 9.0 H (4.5-7.5) Ur Specific [place] 1.018 (1.000-1.030) Urine Protein 1+ H (Negative) Urine Glucose (UA) Negative (Negative) Urine Ketones Negative (Negative) Urine Blood 3+ H (Negative) Urine Nitrite Negative (Negative) Urine Bilirubin Negative (Negative) Urine Urobilinogen Negative (Negative) Ur Leukocyte Esterase 2+ H (Negative) Urine WBC (Auto) >30 H (0-5) /hpf Urine RBC (Auto) 10-30 H (0-4) /hpf U Hyaline Cast (Auto) 1-5 (0-5) /lpf U Epithel Cells (Auto) 20-30 H (0-5) /lpf Urine Bacteria (Auto) 1+ H (Negative) Urine Mucus Present A (None Prsent) Urine Yeast Not Reportable Random Gentamicin mcg/ml PE: General: Alert, orientedx3, NAD Abd: soft, NT, fundus firm, below Umbilicus Perineum intact, Lochia rubra minimal Ext; NT, no edema AP: 34 yo s/p , ppd# 4 Admitted for pp endometritis Responded to IV AB Desires COVID -19 testing and d/c tonight if afebrile VSS Afebrile doing well Continue routine re All questions were answered Possible D/C home tonight Results & Data ([facility]) Vital Signs (Past 12 Hours) Vital Signs Temp Pulse Pulse Resp BP Pulse Ox 05/13/20 08:00 36.4 C L 62 20 102/64 05/13/20 04:10 37.0 C 75 16 117/74 98 05/12/20 23:20 37.2 C 84 17 123/77 98
[2020-05-13] MEDS: IBUPROFEN 600 MG TAB PO PRN (14:47)
[2020-05-13] MEDS ORDERED: AMOXICILLIN/CLAVULANATE 875 MG TAB PO SCH (17:00)
[2020-05-13] MEDS ORDERED: GENTAMICIN SULFATE 350 MG in DEXTROSE 5% 100 ML IV SCH ×2 (19:00→21:00)
--- NOTE | 2020-05-14 00:06 | Obstetrical Progress Note ---
Date of Service May 14, 2020 Assessment & Plan Admission and Anticipated Discharge Date Admission Date: May 12, 2020 Subjective Late entry from 1700 on 05/13 Patient feels well, likes to be discharged tonight Afebrile for over 24 hours Unable to have Covid testing, declined after trial of collection Denies any cough/ sore throat/ fever/ chills/ Abd pain/ N&V/ diarrhea Plan to give 1 more doses of IV AB and then d/c with PO AB F/u in a week Results & Data ([facility]) Vital Signs (Past 12 Hours) Vital Signs Temp Pulse Pulse Resp BP Pulse Ox 05/13/20 20:41 37.4 C 87 74 20 116/68 99 05/13/20 18:38 37.4 C 87 74 20 116/68 99 05/13/20 17:39 37.4 C 87 74 20 116/68 99 05/13/20 15:28 37.4 C 74 20 116/68 99 05/13/20 12:05 37.0 C 71 20 118/73
--- NOTE | 2020-05-14 05:53 | Electrocardiogram Report ---
Test Reason : Blood Pressure : / mmHG Vent. Rate : 088 BPM Atrial Rate : 088 BPM P-R Int : 164 ms QRS Dur : 078 ms QT Int : 358 ms P-R-T Axes : 029 026 021 degrees QTc Int : 433 ms Poor data quality, interpretation may be adversely affected Normal sinus rhythm No previous ECGs available Confirmed by Amaury Thomas ([id number]) on 05/14/2020 5:53:35 AM Referred By: REFERRED SELF Confirmed By:Amaury Thomas
--- NOTE | 2020-05-20 16:05 | Discharge Summary (DS) ---
CHIEF COMPLAINT: Pelvic pain with fever . HISTORY OF PRESENT ILLNESS: The patient is a 34-year-old who delivered vaginally on 05/09/2020. Delivery was unremarkable. She was discharged home . The patient presented to the Emergency Room on 05/12/2020 with chills and fever. She denied chest pain, no shortness of breath, nausea or vomiting. She also had a low abdominal and pelvic pain. Ultrasound and CT scans were done. The patient had a fever of 100.4, otherwise unremarkable. She was admitted for endomyometritis. The patient was started on antibiotic therapy and was afebrile for 24 hours, during which time she was discharged home in stable condition. PAST MEDICAL HISTORY: None. PAST SURGICAL HISTORY: None. SOCIAL HISTORY: The patient is , lives with and 2 children. FAMILY HISTORY: Noncontributory. ALLERGIES: No known drug allergies. REVIEW OF SYSTEMS: Unremarkable except as dictated above. PHYSICAL EXAMINATION: VITAL SIGNS: On day of discharge, temperature was 37.4, respiration was 20, pulse was 87, blood pressure was 116/80. DATA: On 05/12/2020 hemoglobin was 11.4, hematocrit was 33.3, platelets were 129. GENERAL: Well-developed, well-nourished white female in no acute distress. HEART: S1, S2, regular rhythm and rate. LUNGS: Clear to auscultation bilaterally. ABDOMEN: Nontender, slight tenderness to palpate the fundus of the uterus. EXTREMITIES: No cyanosis, clubbing or edema. CONDITION ON DISCHARGE: Stable. OPERATION: endomyometritis. The patient received antibiotics for 24 hours and remarkably improved. Labs were unremarkable. Blood cultures were negative. DISCHARGE DIAGNOSIS: endomyometritis. PLAN ON DISCHARGE: The patient is discharged home with instructions including diet, followup appointments, and medication.
== END 2020-05-13 20:30 | disposition home or self-care (01) | DRG 776 ==
LOC: ED 12:55 → 4N 18:55
DX: O86.12 Endometritis following delivery